=== PATIENT | female | born 1995 | race American Indian/Alaskan Native ===

== ENCOUNTER 2016-12-03 10:14 | Emergency (ER) | payer SELFPAY ==
[2016-12-03 10:44] VITALS: BP 126/82
== END 2016-12-03 13:10 | disposition left against medical advice (07) ==
LOC: ED 10:14
DX: O26.891 Other specified pregnancy related conditions, first trimester (principal); R10.30 Lower abdominal pain, unspecified; R11.0 Nausea; Z53.21 Procedure and treatment not carried out due to patient leaving prior to being seen by health care provider

== ENCOUNTER 2016-12-03 17:18 | Emergency (ER) | payer SELFPAY ==
[2016-12-03 17:48] LABS: Bacteria,Urine 1+ /HPF (Negative); Bilirubin,Urine NEG (Negative); Blood,Urine NEG (Negative); Ketones,Urine 20 mg/dL (Negative); Leukocyte Esterase,Urine LG (Negative); Mucus,Urine 1+ /HPF; Nitrite,Urine NEG (Negative); Protein,Urine <15 mg/dL mg/dL (Negative)
[2016-12-03 18:15] LABS: Basophils % (Auto) 0.9 % (0.0-1.8); Eosinophils % (Auto) 8.8 % (0.0-4.3); Hematocrit 41.8 % (30.3-42.9); Mean Corpuscular HGB Conc 33 % (30-34); Mean Corpuscular Hemoglobin 31 pg (28-32); Mean Corpuscular Volume 92 fl (79-97); Platelet Count 290 K/mm3 (140-440); Red Blood Count 4.54 M/mm3 (3.65-5.03); Red Cell Distribution Width 14.1 % (13.2-15.2)
[2016-12-03 18:28] LABS: Anion Gap 18 mmol/L; BUN/Creatinine Ratio 14.28; Blood Urea Nitrogen 10 mg/dL (7-17); Calcium 9.2 mg/dL (8.4-10.2); Carbon Dioxide 25 mmol/L (22-30); Chloride 100.5 mmol/L (98-107); Glucose 66 mg/dL (65-100); Potassium 4.1 mmol/L (3.6-5.0); Sodium 139 mmol/L (137-145)
--- NOTE | 2016-12-03 19:16 | Ultrasound Report ---
FINAL REPORT PROCEDURE: US TRANSVAGINAL TECHNIQUE: Real-time transvaginal sonography in multiple planes of the pelvis was performed with image documentation. This examination was performed without Doppler. Vascular abnormalities, including ovarian torsion, will not be detectable without Doppler evaluation. CPT 84800 HISTORY: l; eft adnexal pain COMPARISON: 09/28/2015 FINDINGS: UTERUS Size: 6.7 cm. Endometrial thickness: 7 mm. Orientation: anteverted. Cervix: Normal. Fibroids/masses: None. RIGHT Ovary: 3.2 x 2.7 cm. Appearance: Normal flow. Multiple small subcentimeter follicular cysts with a dominant in 7 millimeter cyst seen.. LEFT Ovary: 3.5 x 2.8 cm. Appearance: Normal flow. There is a dominant 1.7 centimeter cyst with minimal peripheral flow of indeterminate etiology. An early ectopic is not entirely excludable and followup is advised.. Pelvic fluid: None. Other: None. IMPRESSION: Dominant indeterminate cystic change left ovary Followup is advised
--- NOTE | 2016-12-03 19:19 | Ultrasound Report ---
FINAL REPORT PROCEDURE: US PELVIC COMPLETE TECHNIQUE: Real-time transabdominal sonography in multiple planes of pelvis was performed with image documentation. This examination was performed without Doppler. Vascular abnormalities, including ovarian torsion, will not be detectable without Doppler evaluation. CPT 63078 HISTORY: left adnexal pain COMPARISON: Transvaginal today and 09/28/2015 FINDINGS: UTERUS Size: 6.7 cm. Endometrial thickness: 7 mm. Orientation: Anteflexed. Cervix: Normal. Fibroids/masses: None. RIGHT Ovary: 3.2 x 2.7 cm. Appearance: Normal flow with small follicular cystic change. LEFT Ovary: 3.5 x 2.8 cm. Appearance: Normal flow with dominant left follicular cystic change 1.7 centimeters, indeterminate. Mild peripheral flow. Ectopic not excludable and followup is advised Pelvic fluid: None. Other: None. IMPRESSION: Dominant indeterminate cystic change left ovary Followup is advised
--- NOTE | 2016-12-03 20:02 | Emergency Department Report ---
ED Female HPI - General Chief complaint: Urogenital-Female Stated complaint: DISCHARGE/LOWER ABD PAIN Time Seen by Provider: 12/03/16 17:22 Source: patient Mode of arrival: Ambulatory Limitations: No Limitations - History of Present Illness Initial comments: 21-year-old female presents with complaint of greenish vaginal discharge 2 weeks. Patient also states that about 2 weeks ago she may have had positive test at home. Patient also complaining of intermittent vaginal bleeding, spotting. Patient states she is on Depo-Provera shots. Denies any significant abdominal pain no nausea no vomiting no fever no chills. States that her primary complaint is of greenish vaginal discharge and mild dysuria. MD Complaint: vaginal discharge, dysuria Onset/Timin -: week(s) Severity: mild Consistency: intermittent Improves with: none Worsens with: urination Last Menstrual Period: 11/15/16 EDC: 08/22/17 Associated Symptoms: vaginal discharge - Related Data Sexually active: Yes Previous Rx's Medication Instructions Recorded Last Taken Type HYDROcodone/APAP 5-325 [[place] 1 each PO Q6HR PRN #20 tablet 05/09/16 Unknown Rx 5/325] Ibuprofen [Motrin] 800 mg PO Q8HR PRN #60 tablet 05/09/16 Unknown Rx Nitrofurantoin [place]/M-Cryst 100 mg PO Q12HR #14 capsule 12/03/16 Unknown Rx [Macrobid CAP] metroNIDAZOLE 0.75% [Metrogel 1 applicatio TP BID #1 tube 12/03/16 Unknown Rx 0.75% TOPICAL] metroNIDAZOLE [Flagyl TAB] 500 mg PO Q12HR #14 tab 12/03/16 Unknown Rx Allergies Allergy/AdvReac Type Severity Reaction Status Date / Time No Known Allergies Allergy Verified 05/07/16 23:14 ED Review of Systems ROS: Stated complaint: DISCHARGE/LOWER ABD PAIN Other details as noted in HPI Constitutional: denies: chills, fever Eyes: denies: eye pain, eye discharge, vision change ENT: denies: ear pain, throat pain Respiratory: denies: cough, shortness of breath, wheezing Cardiovascular: denies: chest pain, palpitations Endocrine: no symptoms reported Gastrointestinal: denies: abdominal pain, nausea, diarrhea Genitourinary: dysuria, discharge. denies: urgency Musculoskeletal: denies: back pain, joint swelling, arthralgia Skin: denies: rash, lesions Neurological: denies: headache, weakness, paresthesias Psychiatric: denies: anxiety, depression Hematological/Lymphatic: denies: easy bleeding, easy bruising ED Past Medical Hx - Past Medical History Previous Medical History?: Yes Hx Hypertension: No Hx Heart Attack/AMI: No Hx Congestive Heart Failure: No Hx Diabetes: No Hx Deep Vein Thrombosis: No Hx Renal Disease: No Hx Sickle Cell Disease: No Hx Seizures: No Hx Asthma: No Hx COPD: No Hx HIV: No - Surgical History Past Surgical History?: No - Social History Smoking Status: Current Every Day Smoker Substance Use Type: Alcohol - Medications Home Medications: Home Medications Medication Instructions Recorded Confirmed Last Taken Type HYDROcodone/APAP 5-325 [[place] 1 each PO Q6HR PRN #20 tablet 05/09/16 Unknown Rx 5/325] Ibuprofen [Motrin] 800 mg PO Q8HR PRN #60 tablet 05/09/16 Unknown Rx Nitrofurantoin [place]/M-Cryst 100 mg PO Q12HR #14 capsule 12/03/16 Unknown Rx [Macrobid CAP] metroNIDAZOLE 0.75% [Metrogel 1 applicatio TP BID #1 tube 12/03/16 Unknown Rx 0.75% TOPICAL] metroNIDAZOLE [Flagyl TAB] 500 mg PO Q12HR #14 tab 12/03/16 Unknown Rx ED Physical Exam - General Limitations: No Limitations General appearance: alert, in no apparent distress - Head Head exam: Present: atraumatic, normocephalic - Eye Eye exam: Present: normal appearance - ENT ENT exam: Present: mucous membranes moist - Neck Neck exam: Present: normal inspection - Respiratory Respiratory exam: Present: normal lung sounds bilaterally. Absent: respiratory distress - Cardiovascular Cardiovascular Exam: Present: regular rate, normal rhythm. Absent: systolic murmur, diastolic murmur, rubs, gallop - GI/Abdominal GI/Abdominal exam: Present: soft, normal bowel sounds - Speculum exam: Present: vaginal discharge (mild whitish discharge him and no bleeding) Bi-manual exam: Present: adnexal tenderness (I'll do left-sided adnexal tenderness) - Extremities Exam Extremities exam: Present: normal inspection - Back Exam Back exam: Present: normal inspection - Neurological Exam Neurological exam: Present: alert, oriented X3, CN II-XII intact, normal gait - Psychiatric Psychiatric exam: Present: normal affect, normal mood - Skin Skin exam: Present: warm, dry, intact, normal color. Absent: rash ED Course Vital Signs 12/03/16 17:21 Temperature 98 F Pulse Rate 89 Respiratory 16 Rate Blood Pressure 116/76 O2 Sat by Pulse 99 Oximetry ED Medical Decision Making - Lab Data Result diagrams: 12/03/16 17:55 12/03/16 17:55 - Medical Decision Making A/P: Vaginal bleeding/spotting, vaginal discharge 1-patient is not negative urine and negative blood tests, ultrasound only shows small cystic structure to her left ovary, Doppler blood flow normal 2-clue cells positive and wet prep will treat empirically with metronidazole 3-urine shows greater than 50 wbc's will treat empirically with Macrobid 4-will give patient follow up with [facility]. I advised her to return to the ED for any fever or chills, severe abdominal pain, significant discharge or any significant vaginal bleeding Critical care attestation.: If time is entered above; I have spent that time in minutes in the direct care of this critically ill patient, excluding procedure time. ED Disposition Clinical Impression: Vaginal discharge Disposition: DISCHARGED TO HOME OR SELFCARE Is pt being admited?: No Does the pt Need Aspirin: No Condition: Stable Instructions: Bacterial Vaginosis (ED), Urinary Tract Infection in Women (ED), Dysuria (ED) Prescriptions: metroNIDAZOLE [Flagyl TAB] 500 mg PO Q12HR #14 tab Nitrofurantoin [place]/M-Cryst [Macrobid CAP] 100 mg PO Q12HR #14 capsule metroNIDAZOLE 0.75% [Metrogel 0.75% TOPICAL] 1 applicatio TP BID #1 tube Referrals: PRIMARY CARE [Primary Care Provider] - 3-5 Days [facility] [Provider Group] - 3-5 Days Forms: Work/School Release Form(ED) Time of Disposition: 20:03
[2016-12-03 20:25] VITALS: BP 120/70
== END 2016-12-03 20:38 | disposition home or self-care (01) ==
LOC: ED 17:18
DX: N89.8 Other specified noninflammatory disorders of vagina (principal); N93.9 Abnormal uterine and vaginal bleeding, unspecified; F17.200 Nicotine dependence, unspecified, uncomplicated
CPT/HCPCS: 36415; 76830; 76856; 80048; 81001; 81025; 84702; 85025; 86850; 86900; 86901; 87086; 87210; 87591

== ENCOUNTER 2017-04-02 16:15 | Emergency (ER) | payer SELFPAY ==
--- NOTE | 2017-04-02 17:37 | Emergency Department Report ---
Entered by ANNIE CASTANEDA, acting as scribe for EULOGIO FAROOQ NP. Chief Complaint: Abdominal Pain Stated Complaint: ABD PAIN/ANXIETY - HPI History of Present Illness: 21 y/o female, nontoxic, well developed, NAD, c/o diffuse abdominal pain beginning 2 weeks ago. Associated dizziness and SOB but denies fever, chills, vaginal bleeding, N/V/D, back pain, chest pain, MARION. Patient reports being sexually active but does not use protection - Exam Vital Signs: Vital Signs 04/02/17 17:15 Temperature 98.2 F Pulse Rate 59 L Respiratory 18 Rate Blood Pressure 105/63 O2 Sat by Pulse 100 Oximetry Physical Exam: GENERAL: The patient is a well-developed, well-nourished male in no apparent distress. Patient is alert and oriented x3. ABDOMEN: Soft, nontender, and nondistended. Positive bowel sounds. No epigastric pain. Positive diffuse tenderness. No hepatosplenomegaly was noted. No guarding or rebound tenderness, negative epigastric bruit. Negative psoas sign, negative hussein sign, negative McBurneys sign MSE screening note: Focused history and physical exam performed. Due to findings the following was ordered: Amylase, lipase, serum HCG, CMP, CBC, UA ED Disposition for MSE Condition: Stable Instructions: Abdominal Pain (ED) This documentation as recorded by the scribe,ANNIE CASTANEDA,accurately reflects the service I personally performed and the decisions made by ,EULOGIO FAROOQ, PEDRO.
[2017-04-02 17:56] LABS: Basophils % (Auto) 0.6 % (0.0-1.8); Eosinophils % (Auto) 2.4 % (0.0-4.3); Hematocrit 39.8 % (30.3-42.9); Hemoglobin 13.1 gm/dl (10.1-14.3); Mean Corpuscular HGB Conc 33 % (30-34); Mean Corpuscular Hemoglobin 30 pg (28-32); Mean Corpuscular Volume 92 fl (79-97); Platelet Count 276 K/mm3 (140-440); Red Blood Count 4.34 M/mm3 (3.65-5.03); Red Cell Distribution Width 14.6 % (13.2-15.2); White Blood Count 4.9 K/mm3 (4.5-11.0)
[2017-04-02 18:09] LABS: Alanine Aminotransferase 7 units/L (7-56); Albumin 4.3 g/dL (3.9-5); Albumin/Globulin Ratio 1.5 %; Alkaline Phosphatase 51 units/L (35-129); Amylase 83 units/L (27-131); Anion Gap 18 mmol/L; Blood Urea Nitrogen 6 mg/dL (7-17); Calcium 9.2 mg/dL (8.4-10.2); Carbon Dioxide 23 mmol/L (22-30); Chloride 98.1 mmol/L (98-107); Glucose 84 mg/dL (65-100); Lipase 28 units/L (13-60); Potassium 3.9 mmol/L (3.6-5.0); Sodium 135 mmol/L (137-145); Total Protein 7.1 g/dL (6.3-8.2)
--- NOTE | 2017-04-02 20:08 | Ultrasound Report ---
FINAL REPORT EXAM: US OB \T\lt; = 14 WEEKS FETUS HISTORY: abd pain, . Nausea, vomiting, and cramping. No history of bleeding. . LMP 02/05/2017 with estimated age 8 weeks 0 days and EDC 11/12/2017 TECHNIQUE: Ultrasound of the pelvis using transabdominal and transvaginal imaging PRIORS: Ultrasound pelvis 12/03/2016 FINDINGS: Uterus: Uterus is enlarged in size and normal and homogeneous in echogenicity without focal fibroid formation. The uterus measures 9.0 x 5.1 x 6.1 cm in size. There is a single early viable intrauterine gestation noted. There is a small hypoechoic subchorionic hemorrhage noted cranial to the gestational sac. This measures 5.1 x 2.9 x 8.5 mm. Intrauterine gestation: There is a single intrauterine gestation identified with both a pole and yolk sac. heart rate is monitored at 128 BPM using M-mode doppler. [place]-rump length measurement of 0.79 cm corresponds to estimated age 6 weeks 5 days with EDC 11/21/2017. Ovaries: Both ovaries appear normal in size and echogenicity with normal blood flow bilaterally. The right ovary measures 3.2 x 1.8 x 2.7 cm on the left ovary measures 2.3 x 1.1 x 1.0 cm in size. There is a complex hypoechoic rounded avascular focus in the right ovary measuring 1.6 cm. Other: There is no evidence for solid adnexal mass is seen. There is trace free fluid in the cul-de-sac. IMPRESSION: 1. single intrauterine viable with an approximate age of 6 weeks 5 days. 2. Small subchorionic hemorrhage cranial to the gestational sac 3. Hypoechoic avascular focus in the right ovary, likely a complex hemorrhagic cyst. This can be followed with ultrasound in 1 week.
[2017-04-03 05:41] VITALS: BP 108/66
--- NOTE | 2017-04-08 20:58 | ED Elopement Review ---
ED Pt Elopement review - Results review Lab results: Laboratory Tests 04/02/17 04/02/17 04/02/17 17:34 17:34 17:34 WBC 4.9 RBC 4.34 Hgb 13.1 Hct 39.8 MCV 92 MCH 30 MCHC 33 RDW 14.6 Plt Count 276 Lymph % (Auto) 39.8 H [place] % (Auto) 7.4 H Eos % (Auto) 2.4 Baso % (Auto) 0.6 Lymph # 2.0 [place] # 0.4 Eos # 0.1 Baso # 0.0 Seg Neutrophils % 49.8 Seg Neutrophils # 2.5 Sodium 135 L Potassium 3.9 Chloride 98.1 Carbon Dioxide 23 Anion Gap 18 BUN 6 L Creatinine 0.5 L Estimated GFR > 60 BUN/Creatinine Ratio 12.00 Glucose 84 Calcium 9.2 Total Bilirubin 1.20 AST 11 ALT 7 Alkaline Phosphatase 51 Total Protein 7.1 Albumin 4.3 Albumin/Globulin Ratio 1.5 Amylase 83 Lipase 28 HCG, Qual Positive HCG, Quant Blood Type 04/02/17 04/02/17 19:04 19:04 WBC RBC Hgb Hct MCV MCH MCHC RDW Plt Count Lymph % (Auto) [place] % (Auto) Eos % (Auto) Baso % (Auto) Lymph # [place] # Eos # Baso # Seg Neutrophils % Seg Neutrophils # Sodium Potassium Chloride Carbon Dioxide Anion Gap BUN Creatinine Estimated GFR BUN/Creatinine Ratio Glucose Calcium Total Bilirubin AST ALT Alkaline Phosphatase Total Protein Albumin Albumin/Globulin Ratio Amylase Lipase HCG, Qual HCG, Quant 58525 H Blood Type O POSITIVE - Call Back decision Pt Call Back Decision: Pt to F/U with PMD (abdominal pain in . U/S shows viable IUP at 6 weeks.)
== END 2017-04-02 18:56 | disposition left against medical advice (07) ==
LOC: ED 16:15
DX: R10.9 Unspecified abdominal pain (principal); Z53.21 Procedure and treatment not carried out due to patient leaving prior to being seen by health care provider
CPT/HCPCS: 36415; 76801; 76817; 80053; 82150; 83690; 84702; 84703; 85025; 86900; 86901; 99283

== ENCOUNTER 2018-05-07 14:16 | Emergency (ER) | payer MEDICAID ==
[2018-05-07 15:01] VITALS: BP 104/61
--- NOTE | 2018-05-07 17:36 | Emergency Department Report ---
ED Abdominal Pain HPI - General Chief Complaint: Abdominal Pain Stated Complaint: ABD PAIN, DISCHARGE,BLEEDING Time Seen by Provider: 05/07/18 17:26 Source: patient Mode of arrival: Ambulatory Limitations: No Limitations - History of Present Illness MD Complaint: abdominal pain -: Gradual, days(s) (several days), unknown Location: suprapubic (several days) Radiation: none Severity: mild Quality: cramping Associated Symptoms: other (brownish green vaginal discharge, eczematous rash upper back) - Related Data Previous Rx's Medication Instructions Recorded Last Taken Type HYDROcodone/APAP 5-325 [[place] 1 each PO Q6HR PRN #20 tablet 05/09/16 Unknown Rx 5/325] Ibuprofen [Motrin] 800 mg PO Q8HR PRN #60 tablet 05/09/16 Unknown Rx Nitrofurantoin [place]/M-Cryst 100 mg PO Q12HR #14 capsule 12/03/16 Unknown Rx [Macrobid CAP] metroNIDAZOLE 0.75%(NF) [Metrogel 1 applicatio TP BID #1 tube 12/03/16 Unknown Rx 0.75% TOPICAL] metroNIDAZOLE [Flagyl TAB] 500 mg PO Q12HR #14 tab 12/03/16 Unknown Rx Fluconazole [Diflucan] 150 mg PO ONCE #1 tablet 05/07/18 Unknown Rx Hydrocortisone 1% [Hydrocortisone 1 applicatio TP TID #1 tube 05/07/18 Unknown Rx 1% CREAM] metroNIDAZOLE [Metronidazole] 500 mg PO BID 7 Days #14 tablet 05/07/18 Unknown Rx Allergies Allergy/AdvReac Type Severity Reaction Status Date / Time No Known Allergies Allergy Verified 05/07/16 23:14 ED Review of Systems ROS: Stated complaint: ABD PAIN, DISCHARGE,BLEEDING Other details as noted in HPI Comment: All other systems reviewed and negative Constitutional: denies: fever, malaise Respiratory: denies: cough Cardiovascular: denies: chest pain Gastrointestinal: abdominal pain, nausea, vomiting Genitourinary: discharge. denies: urgency, dysuria ED Past Medical Hx - Past Medical History Hx Hypertension: No Hx Heart Attack/AMI: No Hx Congestive Heart Failure: No Hx Diabetes: No Hx Deep Vein Thrombosis: No Hx Renal Disease: No Hx Sickle Cell Disease: No Hx Seizures: No Hx Asthma: Yes Hx COPD: No Hx HIV: No - Surgical History Past Surgical History?: No - Social History Smoking Status: Never Smoker Substance Use Type: None - Medications Home Medications: Home Medications Medication Instructions Recorded Confirmed Last Taken Type HYDROcodone/APAP 5-325 [[place] 1 each PO Q6HR PRN #20 tablet 05/09/16 Unknown Rx 5/325] Ibuprofen [Motrin] 800 mg PO Q8HR PRN #60 tablet 05/09/16 Unknown Rx Nitrofurantoin [place]/M-Cryst 100 mg PO Q12HR #14 capsule 12/03/16 Unknown Rx [Macrobid CAP] metroNIDAZOLE 0.75%(NF) [Metrogel 1 applicatio TP BID #1 tube 12/03/16 Unknown Rx 0.75% TOPICAL] metroNIDAZOLE [Flagyl TAB] 500 mg PO Q12HR #14 tab 12/03/16 Unknown Rx Fluconazole [Diflucan] 150 mg PO ONCE #1 tablet 05/07/18 Unknown Rx Hydrocortisone 1% [Hydrocortisone 1 applicatio TP TID #1 tube 05/07/18 Unknown Rx 1% CREAM] metroNIDAZOLE [Metronidazole] 500 mg PO BID 7 Days #14 tablet 05/07/18 Unknown Rx ED Physical Exam - General Limitations: No Limitations General appearance: alert, in no apparent distress - Head Head exam: Present: atraumatic, normocephalic - Eye Eye exam: Present: normal appearance - ENT ENT exam: Present: mucous membranes moist - Neck Neck exam: Present: normal inspection - Respiratory Respiratory exam: Present: normal lung sounds bilaterally. Absent: respiratory distress, wheezes, rales, rhonchi - Cardiovascular Cardiovascular Exam: Present: regular rate, normal rhythm. Absent: systolic murmur, diastolic murmur, rubs, gallop - GI/Abdominal GI/Abdominal exam: Present: soft, normal bowel sounds. Absent: distended, tenderness, guarding, rebound - Extremities Exam Extremities exam: Present: normal inspection - Back Exam Back exam: Present: normal inspection - Neurological Exam Neurological exam: Present: alert, oriented X3 - Psychiatric Psychiatric exam: Present: normal affect, normal mood - Skin Skin exam: Present: warm, dry, intact, normal color, other (dry scaly rash 10 cm x 10 cm right upper back). Absent: rash ED Course Vital Signs 05/07/18 05/07/18 14:58 16:32 Temperature 98.1 F Pulse Rate 62 Respiratory 16 12 Rate Blood Pressure 104/61 O2 Sat by Pulse 98 Oximetry ED Medical Decision Making - Medical Decision Making Vaginitis versus cervicitis, will prescribe metronidazole and fluconazole. Referred to [facility] for STI checks. Also referred to [facility]. Eczematous rash, prescribed hydrocortisone ointment Critical care attestation.: If time is entered above; I have spent that time in minutes in the direct care of this critically ill patient, excluding procedure time. ED Disposition Clinical Impression: Vaginitis, Eczema Disposition: TO HOME OR SELFCARE Is pt being admited?: No Does the pt Need Aspirin: No Condition: Stable Instructions: Vaginitis (ED), Eczema (ED) Prescriptions: Fluconazole [Diflucan] 150 mg PO ONCE #1 tablet Hydrocortisone 1% [Hydrocortisone 1% CREAM] 1 applicatio TP TID #1 tube metroNIDAZOLE [Metronidazole] 500 mg PO BID 7 Days #14 tablet Referrals: [facility] [Outside] - 3-5 Days [facility] [Outside] - 3-5 Days Time of Disposition: 17:37
== END 2018-05-07 17:43 | disposition home or self-care (01) ==
LOC: ED 14:16
DX: N76.0 Acute vaginitis (principal); J45.909 Unspecified asthma, uncomplicated
CPT/HCPCS: 99282

== ENCOUNTER 2019-04-14 12:48 | Emergency (ER) | payer MEDICAID, OTHER ==
--- NOTE | 2019-04-14 12:58 | Emergency Department Report ---
Chief Complaint: Urogenital-Female Stated Complaint: ABD PAIN/DISCHARGE Time Seen by Provider: 04/14/19 12:53 - HPI History of Present Illness: This is a 23 y.o. F. that presents to the ER with abdominal pain, vaginal discharge, and sore throat x 2 weeks. LMP 02/28/2019, A0 Current smoker and occasional drinker. Patient took a home test 2 days ago and positive. Denies vaginal bleeding - Exam Vital Signs: Vital Signs 04/14/19 12:53 Temperature 98.0 F Pulse Rate 78 Respiratory 16 Rate Blood Pressure 98/35 O2 Sat by Pulse 100 Oximetry MSE screening note: Focused history and physical exam performed. Due to findings the following was ordered: This initial assessment/diagnostic orders/clinical plan/treatment(s) is/are subject to change based on patient's health status, clinical progression and re- assessment by fellow clinical providers in the ED. Further treatment and workup at subsequent clinical providers discretion. Patient/guardians urged not to elope from the ED as their condition may be serious if not clinically assessed and managed. Initial orders include: Labs ACC for further evaluation. ED Disposition for MSE Condition: Stable
[2019-04-14 13:22] LABS: Bacteria,Urine 1+ /HPF (Negative); Bilirubin,Urine NEG (Negative); Blood,Urine NEG (Negative); Color,Urine Yellow (Yellow); Mucus,Urine FEW /HPF; Protein,Urine <15 mg/dL mg/dL (Negative)
[2019-04-14 13:32] LABS: Hematocrit 36.8 % (30.3-42.9); Hemoglobin 12.2 gm/dl (10.1-14.3); Mean Corpuscular HGB Conc 33 % (30-34); Mean Corpuscular Volume 94 fl (79-97); Platelet Count 262 K/mm3 (140-440); Red Blood Count 3.92 M/mm3 (3.65-5.03)
[2019-04-14 14:01] LABS: Alanine Aminotransferase 7 units/L (7-56); BUN/Creatinine Ratio 17; Blood Urea Nitrogen 10 mg/dL (7-17); Calcium 9.4 mg/dL (8.4-10.2); Hemolysis Index 8
[2019-04-14 14:10] LABS: Basophils % (Manual) 0 % (0.0-1.8); Platelet Estimate Consistent w Auto; RBC Morphology Normal; Total Cells Counted 100
[2019-04-14] MEDS ORDERED: ROCEPHIN IM ONE (16:25)
[2019-04-14] MEDS ORDERED: XYLOCAINE 1% MPF 5 mL INFILTRATI ONE (16:25)
[2019-04-14] MEDS ORDERED: ZITHROMAX PO ONE (16:26)
--- NOTE | 2019-04-14 16:29 | Emergency Department Report ---
ED Female HPI - General Chief complaint: Urogenital-Female Stated complaint: ABD PAIN/DISCHARGE Time Seen by Provider: 04/14/19 12:53 Source: patient Mode of arrival: Ambulatory Limitations: No Limitations - History of Present Illness Initial comments: 23-year-old female with lower abdominal pain, vaginal discharge times one month. Patient reports she had a positive home test. Patient denies dysuria, urinary frequency. MD Complaint: vaginal discharge -: month(s) (1) Location: suprapubic Severity: mild Quality: cramping Consistency: intermittent Improves with: none Worsens with: none Are you Now?: Yes Associated Symptoms: vaginal discharge, abdominal pain. denies: vaginal bleeding, dysuria - Related Data Previous Rx's Medication Instructions Recorded Last Taken Type HYDROcodone/APAP 5-325 [[place] 1 each PO Q6HR PRN #20 tablet 05/09/16 Unknown Rx 5/325] Ibuprofen [Motrin] 800 mg PO Q8HR PRN #60 tablet 05/09/16 Unknown Rx Nitrofurantoin [place]/M-Cryst 100 mg PO Q12HR #14 capsule 12/03/16 Unknown Rx [Macrobid CAP] metroNIDAZOLE 0.75%(NF) [Metrogel 1 applicatio TP BID #1 tube 12/03/16 Unknown Rx 0.75% TOPICAL] Fluconazole [Diflucan] 150 mg PO ONCE #1 tablet 05/07/18 Unknown Rx Hydrocortisone 1% [Hydrocortisone 1 applicatio TP TID #1 tube 05/07/18 Unknown Rx 1% CREAM] metroNIDAZOLE [Metronidazole] 500 mg PO BID 7 Days #14 tablet 05/07/18 Unknown Rx ALBUTEROL Inhaler(NF) [VENTOLIN 2 puff IH Q4HRT #1 inha 03/17/19 Unknown Rx Inhaler(NF)] Amoxicillin/Potassium Clav 1 each PO BID #14 tablet 03/17/19 Unknown Rx [Augmentin 875-125 Tablet] Fluticasone [Flonase] 1 spray NS QDAY #1 bottle 03/17/19 Unknown Rx predniSONE [Deltasone] 20 mg PO QDAY #5 tab 03/17/19 Unknown Rx traMADol [Ultram] 50 mg PO Q6HR PRN #12 tablet 03/17/19 Unknown Rx metroNIDAZOLE [Flagyl TAB] 500 mg PO Q12HR #14 tab 04/14/19 Unknown Rx Allergies Allergy/AdvReac Type Severity Reaction Status Date / Time No Known Allergies Allergy Verified 04/14/19 12:49 ED Review of Systems ROS: Stated complaint: ABD PAIN/DISCHARGE Other details as noted in HPI Comment: All other systems reviewed and negative Constitutional: denies: chills, fever Gastrointestinal: abdominal pain Genitourinary: discharge. denies: dysuria, frequency ED Past Medical Hx - Past Medical History Hx Hypertension: No Hx Heart Attack/AMI: No Hx Congestive Heart Failure: No Hx Diabetes: No Hx Deep Vein Thrombosis: No Hx Renal Disease: No Hx Sickle Cell Disease: No Hx Seizures: No Hx Asthma: Yes Hx COPD: No Hx HIV: No - Social History Smoking Status: Current Every Day Smoker Substance Use Type: Alcohol - Medications Home Medications: Home Medications Medication Instructions Recorded Confirmed Last Taken Type HYDROcodone/APAP 5-325 [[place] 1 each PO Q6HR PRN #20 tablet 05/09/16 Unknown Rx 5/325] Ibuprofen [Motrin] 800 mg PO Q8HR PRN #60 tablet 05/09/16 Unknown Rx Nitrofurantoin [place]/M-Cryst 100 mg PO Q12HR #14 capsule 12/03/16 Unknown Rx [Macrobid CAP] metroNIDAZOLE 0.75%(NF) [Metrogel 1 applicatio TP BID #1 tube 12/03/16 Unknown Rx 0.75% TOPICAL] Fluconazole [Diflucan] 150 mg PO ONCE #1 tablet 05/07/18 Unknown Rx Hydrocortisone 1% [Hydrocortisone 1 applicatio TP TID #1 tube 05/07/18 Unknown Rx 1% CREAM] metroNIDAZOLE [Metronidazole] 500 mg PO BID 7 Days #14 tablet 05/07/18 Unknown Rx ALBUTEROL Inhaler(NF) [VENTOLIN 2 puff IH Q4HRT #1 inha 03/17/19 Unknown Rx Inhaler(NF)] Amoxicillin/Potassium Clav 1 each PO BID #14 tablet 03/17/19 Unknown Rx [Augmentin 875-125 Tablet] Fluticasone [Flonase] 1 spray NS QDAY #1 bottle 03/17/19 Unknown Rx predniSONE [Deltasone] 20 mg PO QDAY #5 tab 03/17/19 Unknown Rx traMADol [Ultram] 50 mg PO Q6HR PRN #12 tablet 03/17/19 Unknown Rx metroNIDAZOLE [Flagyl TAB] 500 mg PO Q12HR #14 tab 04/14/19 Unknown Rx ED Physical Exam - General Limitations: No Limitations General appearance: alert, in no apparent distress - Head Head exam: Present: atraumatic, normocephalic - Eye Eye exam: Present: normal appearance - ENT ENT exam: Present: mucous membranes moist - Neck Neck exam: Present: normal inspection - Respiratory Respiratory exam: Present: normal lung sounds bilaterally. Absent: respiratory distress - Cardiovascular Cardiovascular Exam: Present: regular rate, normal rhythm - GI/Abdominal GI/Abdominal exam: Present: soft, tenderness (very mild suprapubic tenderness). Absent: distended - External exam: Present: normal external exam Speculum exam: Present: vaginal discharge, cervical discharge Bi-manual exam: Absent: cervical motion tendernes - Extremities Exam Extremities exam: Present: normal inspection - Neurological Exam Neurological exam: Present: alert, oriented X3 - Psychiatric Psychiatric exam: Present: normal affect, normal mood - Skin Skin exam: Present: warm, dry, intact, normal color ED Course Vital Signs 04/14/19 12:53 Temperature 98.0 F Pulse Rate 78 Respiratory 16 Rate Blood Pressure 98/35 O2 Sat by Pulse 100 Oximetry ED Medical Decision Making - Lab Data Result diagrams: 04/14/19 13:18 04/14/19 13:18 - Medical Decision Making - preg test negative - empirically treated for GC and Chlam w/ rocephin and azithro - wet prep shows BV - rx given for flagyl - 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 ED Disposition Clinical Impression: Cervicitis, Bacterial vaginosis Disposition: DC-01 TO HOME OR SELFCARE Is pt being admited?: No Condition: Stable Instructions: Bacterial Vaginosis (ED), Cervicitis (ED) Prescriptions: metroNIDAZOLE [Flagyl TAB] 500 mg PO Q12HR #14 tab Referrals: FATEMEH SNEED MD [Primary Care Provider] - 3-5 Days SCAR HARRINGTON MD [Staff Physician] - 3-5 Days Forms: STI Treatment and Prevention Time of Disposition: 16:37
[2019-04-14 17:14] VITALS: BP 99/64
== END 2019-04-14 17:16 | disposition home or self-care (01) ==
LOC: ED 12:48
DX: N76.0 Acute vaginitis (principal); N72 Inflammatory disease of cervix uteri; J45.909 Unspecified asthma, uncomplicated; F17.200 Nicotine dependence, unspecified, uncomplicated
CPT/HCPCS: 36415; 80053; 81001; 84703; 85007; 85025; 87210; 87591; 96372; 99284; J0696

== ENCOUNTER 2019-04-15 16:20 | Emergency (ER) | payer SELFPAY ==
[2019-04-15 16:27] VITALS: BP 107/62
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
[2019-04-15 19:11] LABS: Basophils % (Auto) 0.9 % (0.0-1.8); Eosinophils # (Auto) 0.1 K/mm3 (0.0-0.4); Eosinophils % (Auto) 3.5 % (0.0-4.3); Hemoglobin 13.3 gm/dl (10.1-14.3); Lymphocytes # (Auto) 1.7 K/mm3 (1.2-5.4); Lymphocytes % (Auto) 45.8 % (13.4-35.0); Mean Corpuscular HGB Conc 33 % (30-34); Mean Corpuscular Volume 93 fl (79-97); Monocytes # (Auto) 0.4 K/mm3 (0.0-0.8); Monocytes % (Auto) 10.6 % (0.0-7.3); Platelet Count 260 K/mm3 (140-440); Red Cell Distribution Width 14.2 % (13.2-15.2)
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
[2019-04-15 19:28] LABS: Alanine Aminotransferase 8 units/L (7-56); Albumin 4.1 g/dL (3.9-5); BUN/Creatinine Ratio 14; Bilirubin,Direct 0.2 mg/dL (0-0.2); Blood Urea Nitrogen 10 mg/dL (7-17); Calcium 9.4 mg/dL (8.4-10.2); Hemolysis Index 11
== END 2019-04-15 19:49 ==
LOC: EEVIPCON 16:20 → ED 16:20
DX: T76.21XA Adult sexual abuse, suspected, initial encounter (principal); J45.909 Unspecified asthma, uncomplicated; F17.200 Nicotine dependence, unspecified, uncomplicated; Z79.899 Other long term (current) drug therapy; X58.XXXA Exposure to other specified factors, initial encounter
CPT/HCPCS: 36415; 80048; 80076; 84703; 85025; 99283; G0480; 80320

== ENCOUNTER 2019-09-25 08:44 | Emergency (ER) | payer SELFPAY ==
[2019-09-25 08:58] VITALS: BP 105/44
--- NOTE | 2019-09-25 09:35 | Emergency Department Report ---
ED General Adult HPI - General Chief complaint: Upper Respiratory Infection Stated complaint: RUNNY NOSE/ VAG DISCHARGE YELLOW Time Seen by Provider: 09/25/19 09:13 Source: patient Mode of arrival: Ambulatory Limitations: No Limitations - History of Present Illness Initial comments: This is a 24-year-old -[place] female who presents to the emergency room with rhinorrhea and vaginal discharge for several days. Patient reports she is 25 weeks . Her [facility]TER is a [employer] [facility]. Patient states her kids are sick she thinks she caught something from them. She reports discharge is yellowish green and constant causing her to wear a panty liner. She denies abdominal pain, back pain, urinary frequency, urgency, dysuria, fever, cough, chills, or weakness. Onset/Timin -: days(s) Severity scale (0 -10): 0 Consistency: constant Improves with: none Worsens with: none Associated Symptoms: denies: confusion, chest pain, cough, diaphoresis, fever/chills, headaches, loss of appetite, malaise, nausea/vomiting, rash, seizure, shortness of breath, syncope, weakness Treatments Prior to Arrival: none - Related Data Previous Rx's Medication Instructions Recorded Last Taken Type HYDROcodone/APAP 5-325 [[place] 1 each PO Q6HR PRN #20 tablet 05/09/16 Unknown Rx 5/325] Ibuprofen [Motrin] 800 mg PO Q8HR PRN #60 tablet 05/09/16 Unknown Rx Nitrofurantoin [place]/M-Cryst 100 mg PO Q12HR #14 capsule 12/03/16 Unknown Rx [Macrobid CAP] metroNIDAZOLE 0.75%(NF) [Metrogel 1 applicatio TP BID #1 tube 12/03/16 Unknown Rx 0.75% TOPICAL] Fluconazole [Diflucan] 150 mg PO ONCE #1 tablet 05/07/18 Unknown Rx Hydrocortisone 1% [Hydrocortisone 1 applicatio TP TID #1 tube 05/07/18 Unknown Rx 1% CREAM] metroNIDAZOLE [Metronidazole] 500 mg PO BID 7 Days #14 tablet 05/07/18 Unknown Rx ALBUTEROL Inhaler(NF) [VENTOLIN 2 puff IH Q4HRT #1 inha 03/17/19 Unknown Rx Inhaler(NF)] Amoxicillin/Potassium Clav 1 each PO BID #14 tablet 03/17/19 Unknown Rx [Augmentin 235125 Tablet] Fluticasone [Flonase] 1 spray NS QDAY #1 bottle 03/17/19 Unknown Rx predniSONE [Deltasone] 20 mg PO QDAY #5 tab 03/17/19 Unknown Rx traMADoL [Ultram] 50 mg PO Q6HR PRN #12 tablet 03/17/19 Unknown Rx metroNIDAZOLE [Flagyl TAB] 500 mg PO Q12HR #14 tab 04/14/19 Unknown Rx Miconazole Nitrate [Miconazole 7] 100 mg VG QHS #7 supp.vag 09/25/19 Unknown Rx metroNIDAZOLE [Flagyl TAB] 500 mg PO Q12HR 7 Days #14 tab 09/25/19 Unknown Rx Allergies Allergy/AdvReac Type Severity Reaction Status Date / Time No Known Allergies Allergy Verified 04/14/19 12:49 ED Review of Systems ROS: Stated complaint: RUNNY NOSE/ VAG DISCHARGE YELLOW Other details as noted in HPI Constitutional: denies: chills, fever ENT: congestion. denies: ear pain, throat pain, dental pain, hearing loss, epistaxis Respiratory: denies: cough, shortness of breath, wheezing Cardiovascular: denies: chest pain, palpitations Gastrointestinal: denies: abdominal pain, nausea, diarrhea Genitourinary: discharge. denies: urgency, dysuria, frequency, abnormal menses, dyspareunia Musculoskeletal: denies: back pain, joint swelling, arthralgia Skin: denies: rash, lesions Neurological: denies: headache, weakness, paresthesias Psychiatric: denies: anxiety, depression ED Past Medical Hx - Past Medical History Previous Medical History?: Yes Hx Hypertension: No Hx Heart Attack/AMI: No Hx Congestive Heart Failure: No Hx Diabetes: No Hx Deep Vein Thrombosis: No Hx Renal Disease: No Hx Sickle Cell Disease: No Hx Seizures: No Hx Asthma: Yes Hx COPD: No Hx HIV: No Additional medical history: Eczema - Surgical History Past Surgical History?: No - Social History Smoking Status: Never Smoker - Medications Home Medications: Home Medications Medication Instructions Recorded Confirmed Last Taken Type HYDROcodone/APAP 5-325 [[place] 1 each PO Q6HR PRN #20 tablet 05/09/16 Unknown Rx 5/325] Ibuprofen [Motrin] 800 mg PO Q8HR PRN #60 tablet 05/09/16 Unknown Rx Nitrofurantoin [place]/M-Cryst 100 mg PO Q12HR #14 capsule 12/03/16 Unknown Rx [Macrobid CAP] metroNIDAZOLE 0.75%(NF) [Metrogel 1 applicatio TP BID #1 tube 12/03/16 Unknown Rx 0.75% TOPICAL] Fluconazole [Diflucan] 150 mg PO ONCE #1 tablet 05/07/18 Unknown Rx Hydrocortisone 1% [Hydrocortisone 1 applicatio TP TID #1 tube 05/07/18 Unknown Rx 1% CREAM] metroNIDAZOLE [Metronidazole] 500 mg PO BID 7 Days #14 tablet 05/07/18 Unknown Rx ALBUTEROL Inhaler(NF) [VENTOLIN 2 puff IH Q4HRT #1 inha 03/17/19 Unknown Rx Inhaler(NF)] Amoxicillin/Potassium Clav 1 each PO BID #14 tablet 03/17/19 Unknown Rx [Augmentin 875-125 Tablet] Fluticasone [Flonase] 1 spray NS QDAY #1 bottle 03/17/19 Unknown Rx predniSONE [Deltasone] 20 mg PO QDAY #5 tab 03/17/19 Unknown Rx traMADoL [Ultram] 50 mg PO Q6HR PRN #12 tablet 03/17/19 Unknown Rx metroNIDAZOLE [Flagyl TAB] 500 mg PO Q12HR #14 tab 04/14/19 Unknown Rx Miconazole Nitrate [Miconazole 7] 100 mg VG QHS #7 supp.vag 09/25/19 Unknown Rx metroNIDAZOLE [Flagyl TAB] 500 mg PO Q12HR 7 Days #14 tab 09/25/19 Unknown Rx ED Physical Exam - General Limitations: No Limitations General appearance: alert, in no apparent distress - Respiratory Respiratory exam: Present: normal lung sounds bilaterally. Absent: respiratory distress, wheezes, rales, rhonchi, stridor, chest wall tenderness, accessory muscle use - Cardiovascular Cardiovascular Exam: Present: regular rate, normal rhythm. Absent: systolic murmur, diastolic murmur, rubs, gallop - GI/Abdominal GI/Abdominal exam: Present: soft, normal bowel sounds - External exam: Present: normal external exam Speculum exam: Present: vaginal discharge (malodorous frothy yellowish green ). Absent: cervical discharge, vaginal bleeding, foreign body, tissue, laceration Bi-manual exam: Present: normal bi-manual exam, uterine enlargement. Absent: cervical motion tendernes - Back Exam Back exam: Absent: CVA tenderness (R), CVA tenderness (L) - Neurological Exam Neurological exam: Present: alert, oriented X3, normal gait - Psychiatric Psychiatric exam: Present: normal affect, normal mood - Skin Skin exam: Present: warm, dry, intact, normal color. Absent: rash ED Course Vital Signs 09/25/19 08:55 Temperature 98.5 F Pulse Rate 78 Respiratory 18 Rate Blood Pressure 105/44 O2 Sat by Pulse 100 Oximetry ED Medical Decision Making - Lab Data Lab Results 09/25/19 Range/Units 11:46 Urine Color Yellow (Yellow) Urine Turbidity Clear (Clear) Urine pH 8.0 H (5.0-7.0) Ur Specific [place] 1.015 (1.003-1.030) Urine Protein <15 mg/dl (Negative) mg/dL Urine Glucose (UA) Neg (Negative) mg/dL Urine Ketones Neg (Negative) mg/dL Urine Blood Neg (Negative) Urine Nitrite Neg (Negative) Urine Bilirubin Neg (Negative) Urine Urobilinogen 2.0 (<2.0) mg/dL Ur Leukocyte Esterase Sm (Negative) Urine WBC (Auto) 1.0 (0.0-6.0) /HPF Urine RBC (Auto) 1.0 (0.0-6.0) /HPF U Epithel Cells (Auto) 1.0 (0-13.0) /HPF Urine Mucus Few /HPF - Medical Decision Making Patient was examined by me. Patient is nontoxic appearing and stable. Vitals are normal. Pelvic exam was performed. Obtained urinalysis, wet prep, and gonorrhea and chlamydia. Urinalysis unremarkable. Wet prep positive for clue cells and yeast, negative trichomoniasis. Gonorrhea and chlamydia is pending. There is mild congestion on focal exam with normal vital signs which suggest upper respiratory infection. Acute cervicitis and bacterial vaginitis. Empirically treated with Rocephin and azithromycin. Start metronidazole and miconazole. Patient informed of results. Instructed to follow-up with her [facility] and [facility] or return to the ER with worsening symptoms. Patient discharged home in stable condition. Critical care attestation.: If time is entered above; I have spent that time in minutes in the direct care of this critically ill patient, excluding procedure time. ED Disposition Clinical Impression: Acute cervicitis, Bacterial vaginitis, Candidiasis of vagina Vaginal discharge during Qualifiers: Trimester: second trimester Qualified Code(s): O26.892 - Other specified related conditions, second trimester Upper respiratory infection Qualifiers: URI type: acute nasopharyngitis (common cold) Qualified Code(s): J00 - Acute nasopharyngitis [common cold] Disposition: TO HOME OR SELFCARE Is pt being admited?: No Condition: Stable Instructions: Bacterial Vaginosis (ED), Cervicitis (ED), Upper Respiratory Infection (ED), Cold Symptoms (ED) Additional Instructions: Increase fluid intake and rest. Wash hands frequently. Continue safe sexual intercourse. Return to ER if fever, SOB, or difficulty breathing after 48 hours of supportive care. Prescriptions: Miconazole Nitrate [Miconazole 7] 100 mg VG QHS #7 supp.vag metroNIDAZOLE [Flagyl TAB] 500 mg PO Q12HR 7 Days #14 tab Referrals: [facility] [Provider Group] - 3-5 Days [facility] [Outside] - 3-5 Days Forms: STI Treatment and Prevention Time of Disposition: 11:28
[2019-09-25] MEDS ORDERED: LIDOCAINE-MPF (1%) 10 MG/1 ML VIAL 5 ML INFILTRATI ONE (11:44)
[2019-09-25] MEDS ORDERED: AZITHROMYCIN 250 MG TAB PO ONE (11:44)
[2019-09-25 12:11] LABS: Bilirubin,Urine NEG (Negative); Blood,Urine NEG (Negative); Color,Urine Yellow (Yellow); Mucus,Urine FEW /HPF; Protein,Urine <15 mg/dL mg/dL (Negative)
== END 2019-09-25 12:26 | disposition home or self-care (01) ==
LOC: ED 08:44
DX: O99.512 Diseases of the respiratory system complicating pregnancy, second trimester (principal); O23.512 Infections of cervix in pregnancy, second trimester; O23.592 Infection of other part of genital tract in pregnancy, second trimester; B96.89 Other specified bacterial agents as the cause of diseases classified elsewhere; J45.909 Unspecified asthma, uncomplicated; J06.9 Acute upper respiratory infection, unspecified; Z3A.25 25 weeks gestation of pregnancy
CPT/HCPCS: 81001; 87210; 87591; 96372; 99284; J0696

== ENCOUNTER 2019-11-23 06:49 | Outpatient (CLI) | payer SELFPAY ==
[2019-11-23 07:14] VITALS: BP 99/59
[2019-11-23] MEDS ORDERED: LACTATED RINGERS 500 ML IV ONE (08:30)
[2019-11-23] MEDS ORDERED: LACTATED RINGERS 1,000 ML IV SCH (09:00)
[2019-11-23] MEDS ORDERED: TERBUTALINE 1 MG/1 ML INJ SUB-Q ONE (09:30)
[2019-11-23 10:54] LABS: Bilirubin,Urine NEG (Negative); Blood,Urine NEG (Negative); Color,Urine Straw (Yellow); Protein,Urine <15 mg/dL mg/dL (Negative); Urobilinogen,Urine < 2.0 mg/dL (<2.0)
== END 2019-11-23 11:35 | disposition home or self-care (01) ==
LOC: TRG 06:49
PROVIDERS: ATTEND Obstetrics & Gynecology
DX: O62.9 Abnormality of forces of labor, unspecified (principal); O99.513 Diseases of the respiratory system complicating pregnancy, third trimester; J45.909 Unspecified asthma, uncomplicated; Z3A.33 33 weeks gestation of pregnancy
CPT/HCPCS: 59025; 81001; 96360; 96361; 96372; J3105; J7120

== ENCOUNTER 2019-12-11 13:18 | Outpatient (CLI) | payer OTHER ==
[2019-12-11 15:35] VITALS: BP 104/55
[2019-12-11] MEDS ORDERED: LACTATED RINGERS 1,000 ML IV SCH (16:00)
[2019-12-11] MEDS ORDERED: diphenhydrAMINE 25 MG CAP PO ONE (16:31)
[2019-12-11 16:32] LABS: Bilirubin,Urine NEG (Negative); Blood,Urine NEG (Negative); Color,Urine Yellow (Yellow); Mucus,Urine FEW /HPF; Protein,Urine <15 mg/dL mg/dL (Negative)
[2019-12-11 17:08] LABS: Hematocrit 35.1 % (30.3-42.9); Hemoglobin 11.9 gm/dl (10.1-14.3); Mean Corpuscular HGB Conc 34 % (30-34); Mean Corpuscular Volume 89 fl (79-97); Platelet Count 203 K/mm3 (140-440); Red Blood Count 3.95 M/mm3 (3.65-5.03); Red Cell Distribution Width 14.7 % (13.2-15.2)
[2019-12-11 17:24] LABS: Alanine Aminotransferase 6 units/L (7-56); Albumin 3.7 g/dL (3.9-5); BUN/Creatinine Ratio 12; Blood Urea Nitrogen 6 mg/dL (7-17); Calcium 9.5 mg/dL (8.4-10.2); Hemolysis Index 21
[2019-12-11] MEDS ORDERED: diphenhydrAMINE 50 MG/ML VIAL IV PRN (17:39)
== END 2019-12-11 18:48 | disposition home or self-care (01) ==
LOC: TRG 13:18
PROVIDERS: ATTEND Obstetrics & Gynecology
DX: O26.893 Other specified pregnancy related conditions, third trimester (principal); L29.9 Pruritus, unspecified; O47.03 False labor before 37 completed weeks of gestation, third trimester; O99.513 Diseases of the respiratory system complicating pregnancy, third trimester; J45.909 Unspecified asthma, uncomplicated; Z3A.36 36 weeks gestation of pregnancy
CPT/HCPCS: 36415; 59025; 80053; 81001; 82150; 83690; 85027; 96360; 96361; J7120; 96365; J1200

== ENCOUNTER 2020-01-07 00:01 | Inpatient (IN) | payer MEDICAID ==
[2020-01-07] MEDS ORDERED: ePHEDrine SULFATE 50 MG/1 ML INJ IV PRN (01:10)
[2020-01-07] MEDS ORDERED: LIDOCAINE (2%) 20 MG/1 ML VIAL 20 ML MDV INFILTRATI ONE (01:10)
[2020-01-07] MEDS ORDERED: TERBUTALINE 1 MG/1 ML INJ IVP PRN (01:10)
[2020-01-07] MEDS ORDERED: MINERAL OIL 30 ML ORAL LIQD PO PRN (01:10)
[2020-01-07] MEDS ORDERED: BUTORPHANOL 2 MG/1 ML INJ IV PRN ×2 (01:10)
[2020-01-07] MEDS ORDERED: AMPICILLIN/NS 2 GM/100 ML 2 GM/100 ML BAG IV ONE (01:10)
[2020-01-07] MEDS ORDERED: TERBUTALINE 1 MG/1 ML INJ SUB-Q PRN (01:10)
[2020-01-07] MEDS ORDERED: fentaNYL 100 MCG/2 ML INJ IV PRN (01:10)
[2020-01-07 01:55] LABS: Hemoglobin 11.4 gm/dl (10.1-14.3); Mean Corpuscular HGB Conc 33 % (30-34); Mean Corpuscular Volume 87 fl (79-97); Platelet Count 224 K/mm3 (140-440); Red Blood Count 3.89 M/mm3 (3.65-5.03)
[2020-01-07] MEDS ORDERED: OXYTOCIN 20 UNIT/1000ML DRIP 20 UNITS/1,000 ML BAG IV SCH (02:00)
[2020-01-07] MEDS ORDERED: LACTATED RINGERS 1,000 ML IV SCH (02:00)
[2020-01-07] MEDS ORDERED: diphenhydrAMINE 25 MG CAP PO PRN (04:50)
[2020-01-07] MEDS ORDERED: ACETAMINOPHEN 325 MG TAB PO PRN (04:50)
[2020-01-07] MEDS ORDERED: ONDANSETRON 4 MG/2 ML INJ IV PRN (04:50)
[2020-01-07] MEDS ORDERED: KETOROLAC 30 MG/1 ML INJ IV PRN (04:50)
[2020-01-07] MEDS ORDERED: LANOLIN/ZINC/DIMETHICONE (LANSINOH) 7 GM TP PRN (04:50)
[2020-01-07] MEDS ORDERED: HYDROcodone/ACETAMINOPHEN 5-325 MG TAB PO PRN (04:50)
[2020-01-07] MEDS ORDERED: WITCH HAZEL/ GLYCERIN PAD TP PRN (04:50)
[2020-01-07] MEDS ORDERED: PROMETHAZINE 25 MG RECT SUPP PR PRN (04:50)
[2020-01-07] MEDS ORDERED: PROMETHAZINE 25 MG TAB PO PRN (04:50)
[2020-01-07] MEDS ORDERED: MAGNESIUM HYDROXIDE (MOM) ORAL LIQD UDC PO PRN (04:50)
--- NOTE | 2020-01-07 04:57 | History and Physical Report ---
History of Present Illness Date of examination: 01/07/20 Date of admission: 01/07/20 00:21 Chief complaint: contractions History of present illness: This is a 24 yo at 40+0 weeks here for contractions. She was noted to be 3cm and magdiel. She has a hx of asthma and GBS in urine treated. 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 Past History Past Medical History: asthma [employer] History: abnormal PAP smear, chlamydia Family/Genetic History: hypertension, other (arthreits) Social history: single. denies: smoking, alcohol abuse, prescription drug abuse - Obstetrical History Expected Date of Delivery: 01/07/20 Actual Gestation: 40 Week(s) 0 Day(s) : 3 Para: 2 Hx # Term Pregnancies: 2 Number of Pregnancies: 0 Spontaneous Abortions: 0 Induced : 0 Number of Living Children: 2 Medications and Allergies Allergies Allergy/AdvReac Type Severity Reaction Status Date / Time No Known Allergies Allergy Verified 04/14/19 12:49 Home Medications Medication Instructions Recorded Confirmed Last Taken Type No Known Home Medications [No 11/23/19 11/23/19 Unknown History Reported Home Medications] Active Meds: Active Medications Acetaminophen (Tylenol) 650 mg PO Q4H PRN PRN Reason: Pain MILD(1-3)/Fever >100.5/MARION Acetaminophen/Hydrocodone Bitart ([place] 5/325) 2 each PO Q6H PRN PRN Reason: Pain, Moderate (4-6) Bisacodyl (Dulcolax) 10 mg ID BID PRN PRN Reason: Constipation Butorphanol Tartrate (Stadol) 2 mg IV Q2H PRN PRN Reason: Pain , Severe (7-10) Butorphanol Tartrate (Stadol) 1 mg IV Q2H PRN PRN Reason: Labor Pain Diphenhydramine HCl (Benadryl) 25 mg PO Q6H PRN PRN Reason: Itching Diphtheria/Tetanus/Acell Pertussis (Boostrix) 0.5 ml IM .ONCE ONE Stop: 01/08/20 04:51 Docusate Sodium (Colace) 100 mg PO BID ASHTYN Ephedrine Sulfate (Ephedrine Sulfate) 10 mg IV Q2M PRN PRN Reason: Hypotension Fentanyl (Sublimaze) 100 mcg IV Q2H PRN PRN Reason: Labor Pain Last Admin: 01/07/20 03:00 Dose: 100 mcg Documented by: Oxytocin/Sodium Chloride (Pitocin/Ns 20 Unit/1000ml Drip) 20 units in 1,000 mls @ 125 mls/hr IV DIRECT ASHTYN Lactated Ringer's (Lactated Ringers) 1,000 mls @ 125 mls/hr IV DIRECT ASHTYN Last Admin: 01/07/20 02:15 Dose: 125 mls/hr Documented by: Ampicillin Sodium (Ampicillin/Ns 1 Gm/50 Ml) 1 gm in 50 mls @ 100 mls/hr IV Q4HR ASHTYN; Protocol Ibuprofen (Ibuprofen) 600 mg PO Q6H ASHTYN Ketorolac Tromethamine (Toradol) 30 mg IV Q6H PRN PRN Reason: Pain, Moderate (4-6) Stop: 01/12/20 04:49 Magnesium Hydroxide (Milk Of Magnesia) 30 ml PO HS PRN PRN Reason: Constipation Measles/Mumps/Rubella Vaccine Live (M-M-R Ii Vaccine) 0.5 ml SUB-Q .ONCE ONE Stop: 01/08/20 04:51 Mineral Oil (Mineral Oil) 30 ml PO QHS PRN PRN Reason: Constipation Multi-Ingredient Ointment (Lansinoh) 1 applic TP PRN PRN PRN Reason: Sore Nipples Multivitamins/Iron/Calcium ( Vitamin) 1 each PO QDAY [facility] Ondansetron HCl (Zofran) 4 mg IV Q8H PRN PRN Reason: Nausea And Vomiting Oxycodone/Acetaminophen (Percocet 5/325) 1 tab PO Q6H PRN PRN Reason: Pain, Moderate (4-6) Promethazine HCl (Phenergan) 25 mg ID Q6H PRN PRN Reason: Nausea And Vomiting Promethazine HCl (Phenergan) 25 mg PO Q6H PRN PRN Reason: Nausea And Vomiting Senna/Docusate Sodium (Senokot S) 2 tab PO Q12H [facility] Sodium Chloride (Sodium Chloride Flush Syringe 10 Ml) 10 ml IV PRN NR Terbutaline Sulfate (Brethine) 0.25 mg SUB-Q ONCE PRN PRN Reason: Hyperstimulation/Hypertonicity Terbutaline Sulfate (Brethine) 0.25 mg IVP ONCE PRN PRN Reason: Hyperstimulation/Hypertonicity [place]/Glycerin (Tucks Pad) 1 each TP PRN PRN PRN Reason: Hemorrhoid/cleansing/soothing Review of Systems All systems: negative - Vital Signs Vital signs: Vital Signs Pulse BP 74 109/62 01/07/20 00:16 01/07/20 00:16 Temp Pulse Resp BP Pulse Ox 74 109/62 01/07/20 00:16 01/07/20 00:16 - Physical Exam Breasts: Positive: normal Cardiovascular: Regular rate, Normal S1 Lungs: Positive: Clear to auscultation, Normal air movement Abdomen: Positive: normal appearance, soft, normal bowel sounds. Negative: distention, tenderness, guarding Genitourinary (Female): Positive: normal external genitalia, normal perenium Vagina: Positive: normal moisture Uterus: Positive: normal size Anus/Rectum: Positive: normal perianal skin Extremities: Positive: normal Deep Tendon Reflex Grade: Normal +2 - Obstetrical FHR: category 1 Cervical Dilatation: 3 Cervical Effacement Percentage: 70 station: -2 Results Result Diagrams: 01/07/20 01:35 All other labs normal. Assessment and Plan A/P IUP 40+0 weeks hx of hsv no outbreaks asthma GBS + Admit to l and d IVF, abx for GBS + expect vaginal delivery
--- NOTE | 2020-01-07 05:03 | Procedure Note ---
OB Delivery Note - Delivery Date of Delivery: 01/07/20 Surgeon: ISRAEL DAVALOS Estimated blood loss: 300cc - Vaginal Delivery presentation: vertex Delivery position: OA Delivery induction: none Delivery augmentation: rupture of membranes Delivery monitor: external FHT, external uterine Route of delivery: Delivery placenta: spontaneous Delivery cord: nuchal cord, 3 umbilical vessels Episiotomy: none Delivery laceration: none Anesthesia: intravenous Delivery comments: Patient was noted to be complete and +2 and commenced to pushing after a AROM of clear fluid. Baby delivered cephalic in a CHRIS position. A nuchal cord loose reduced without complications and the shoulders delivered easily at 0441. The cord was clamped and cut and handed to awaiting Beatriz team. The placenta delviered intact at 0445 with three vessel cord. Survey of perineum without lacerations. EBL 300 cc. Patient tolerated procedure well and bonding with baby. All laps and needles counted and correct. - A at 1 minute: 8 at 5 minutes: 9 Infant Gender: Female (6 pounds 12 oz)
[2020-01-07] MEDS ORDERED: AMPICILLIN/NS 1 GM/50 ML 1 GM/50 ML BAG IV SCH (05:12)
[2020-01-07] MEDS: PRENATAL VIT27-FE FUMARATE-FOLIC ACID VIT TAB PO SCH (09:26)
[2020-01-07] MEDS: IBUPROFEN 600 MG TAB PO SCH ×3 (09:26→22:27)
[2020-01-07] MEDS: DOCUSATE SODIUM 100 MG CAP PO SCH ×2 (09:26→22:27)
[2020-01-07 16:36] LABS: Hematocrit 29.7 % (30.3-42.9); Hemoglobin 9.9 gm/dl (10.1-14.3)
[2020-01-07] MEDS: oxyCODONE /ACETAMINOPHEN 5-325MG TAB PO PRN (18:47)
[2020-01-08] MEDS: IBUPROFEN 600 MG TAB PO SCH ×4 (05:16→22:25)
[2020-01-08] MEDS: SENNOSIDES/DOCUSATE SODIUM 8.6/50 MG TAB PO SCH ×2 (05:16→18:12)
[2020-01-08] MEDS ORDERED: MEASLES, MUMPS & RUBELLA 12,500 UNIT/0.5 ML VACCINE SUB-Q ONE (06:00)
[2020-01-08] MEDS ORDERED: TETANUS,DIPH,PERTUSS(ACELL) VACCINE 0.5 ML SYRINGE IM ONE (06:00)
--- NOTE | 2020-01-08 07:51 | Progress Note ---
Assessment and Plan A/P PPD1 routine pp care acute anemia iron added Subjective - Subjective Date of service: 01/08/20 Principal diagnosis: s/p Interval history: This is a 24 yo at 40+0 weeks here for contractions. She was noted to be 3cm and magdiel. She has a hx of asthma and GBS in urine treated. 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 Patient reports: appetite normal, pain well controlled, flatus, ambulating normally [place]: doing well Objective - Vital Signs Latest vital signs: Vital Signs Temp Pulse Resp BP Pulse Ox 01/08/20 00:04 98.2 F 58 L 20 103/61 98 01/07/20 16:19 98.7 F 67 20 96/58 96 01/07/20 13:49 98.1 F 69 19 111/66 99 01/07/20 07:53 98.2 F 63 20 110/69 94 Intake and Output 01/07/20 01/07/20 01/08/20 15:59 23:59 07:59 Intake Total 960 120 480 Output Total 200 Balance 960 -80 480 Intake: Oral 960 120 480 Output: Urine 200 Void 200 Other: Total, Intake Amount 480 120 240 Total, Output Amount 200 # Voids Void 2 1 # Bowel Movements 0 - Exam Breasts: Present: normal Cardiovascular: Present: Regular rate, Normal S1 Lungs: Present: Clear to auscultation, Normal air movement Abdomen: Present: normal appearance, soft, normal bowel sounds. Absent: distention, tenderness, guarding Uterus: Present: normal, firm, fundal height at umbilicus. Absent: bogginess, tenderness Extremities: Present: normal Deep Tendon Reflex Grade: Normal +2 - Labs Labs: Abnormal lab results 01/07/20 Range/Units 16:25 Hgb 9.9 L (10.1-14.3) gm/dl Hct 29.7 L (30.3-42.9) %
[2020-01-08] MEDS: DOCUSATE SODIUM 100 MG CAP PO SCH ×2 (09:33→22:24)
[2020-01-08] MEDS: PRENATAL VIT27-FE FUMARATE-FOLIC ACID VIT TAB PO SCH (09:33)
--- NOTE | 2020-01-09 06:55 | Progress Note ---
Assessment and Plan PPD 2 s/p . Doing well. Plan for discharge on today. Subjective - Subjective Date of service: 01/09/20 Principal diagnosis: s/p Patient reports: appetite normal, voiding normally, pain well controlled, ambulating normally [place]: doing well Objective - Vital Signs Latest vital signs: Vital Signs Temp Pulse Resp BP BP Pulse Ox 01/09/20 00:29 98.4 F 64 18 91/59 98 01/08/20 22:25 18 01/08/20 15:49 97.8 F 73 18 102/63 99 01/08/20 09:46 98.2 F 79 20 85/49 91 01/08/20 08:48 98.2 F 71 20 77/43 99 Intake and Output 01/08/20 01/08/20 01/09/20 14:59 22:59 06:59 Intake Total 2800 720 Balance 2800 720 Intake: Oral 2320 Intake, Free Water 480 720 Other: Total, Intake Amount 240 # Voids Void 2 1 # Bowel Movements 0 - Exam Breasts: Present: deferred Cardiovascular: Present: Regular rate, Normal S1, Normal S2 Lungs: Present: Clear to auscultation, Normal air movement Abdomen: Present: normal appearance, soft Extremities: Present: normal
--- NOTE | 2020-01-09 06:56 | Discharge Summary ---
Providers - Providers Date of Admission: 01/07/20 00:21 Date of discharge: 01/09/20 Attending physician: ISRAEL DAVALOS MD Primary care physician: ISRAEL DAVALOS MD Hospitalization Reason for admission: active labor Delivery: complications: none Discharge diagnosis: IUP at term delivered baby: female Hospital course: unremarkable Condition at discharge: Good Disposition: DC-01 TO HOME OR SELFCARE Plan - Discharge Medications Prescriptions: Ibuprofen [Motrin] 600 mg PO Q8H PRN #30 tablet PRN Reason: Pain oxyCODONE /ACETAMINOPHEN [Percocet 5/325] 1 tab PO Q6HR PRN #20 tablet PRN Reason: Pain - Provider Discharge Summary Activity: routine, no sex for 6 weeks, no heavy lifting 4 weeks, no strenuous exercise Diet: routine Instructions: routine Additional instructions: [] Smoking cessation referral if applicable(refer to patient education folder for contact #) [] Refer to [facility] Booklet Call your doctor immediately for: * Fever > 100.5 * Heavy vaginal bleeding ( >1 pad per hour) * Severe persistent headache * Shortness of breath * Reddened, hot, painful area to leg or breast * Drainage or odor from incision. * Keep incision clean and dry at all times and follow doctor's instructions regarding bathing/showering - Follow up plan Follow up: ISRAEL DAVALOS MD [Primary Care Provider] - 6 Weeks
[2020-01-09] MEDS: IBUPROFEN 600 MG TAB PO SCH (09:04)
[2020-01-09] MEDS: PRENATAL VIT27-FE FUMARATE-FOLIC ACID VIT TAB PO SCH (09:05)
[2020-01-09] MEDS: DOCUSATE SODIUM 100 MG CAP PO SCH (09:05)
[2020-01-09] MEDS: oxyCODONE /ACETAMINOPHEN 5-325MG TAB PO PRN (09:06)
[2020-01-09 14:59] VITALS: BP 121/75
== END 2020-01-09 13:38 | disposition home or self-care (01) | DRG 775 ==
LOC: TRG 00:01 → OBSVTOIN 00:21 → LD 00:21 → OB 06:19
PROVIDERS: ADMIT Obstetrics & Gynecology; ATTEND Obstetrics & Gynecology
PROC: 10E0XZZ Delivery of Products of Conception, External Approach (ICD-10-PCS; principal; 2020-01-07)
PROC: 3E0234Z Introduction of Serum, Toxoid and Vaccine into Muscle, Percutaneous Approach (ICD-10-PCS; 2020-01-08)
PROC: 3E0134Z Introduction of Serum, Toxoid and Vaccine into Subcutaneous Tissue, Percutaneous Approach (ICD-10-PCS; 2020-01-08)
DX: O69.81X0 Labor and delivery complicated by cord around neck, without compression, not applicable or unspecified (principal); O99.52 Diseases of the respiratory system complicating childbirth; O99.824 Streptococcus B carrier state complicating childbirth; D64.9 Anemia, unspecified; J45.909 Unspecified asthma, uncomplicated; O99.03 Anemia complicating the puerperium; Z3A.40 40 weeks gestation of pregnancy; Z37.0 Single live birth; Z23 Encounter for immunization; Z82.49 Family history of ischemic heart disease and other diseases of the circulatory system; Z82.61 Family history of arthritis
CPT/HCPCS: 36415; 85014; 85018; 85027; 86850; 86900; 86901; G0378; J0290; J2590; J3010; J7120

== ENCOUNTER 2021-12-31 17:56 | Emergency (ER) | payer MEDICAID ==
[2021-12-31 18:38] VITALS: BP 110/60
--- NOTE | 2021-12-31 19:30 | Emergency Department Report ---
ED General Adult HPI - General Chief complaint: Skin/Abscess/Foreign Body Stated complaint: TAMPON STUCK Time Seen by Provider: 12/31/21 19:06 Source: patient Mode of arrival: Ambulatory Limitations: No Limitations - History of Present Illness Initial comments: Patient is 26 years old female with no significant past medical history. Patient presented to the ER stating that she had a tampon stuck into her vagina since last night. Patient stated that she is currently on her cycle. Patient denied any fever or chills. Severity scale (0 -10): 10 - Related Data Previous Rx's Medication Instructions Recorded Last Taken Type Ibuprofen [Motrin] 600 mg PO Q8H PRN #30 tablet 01/07/20 Unknown Rx oxyCODONE /ACETAMINOPHEN [Percocet 1 tab PO Q6HR PRN #20 tablet 01/07/20 Unknown Rx 5/325] Allergies Allergy/AdvReac Type Severity Reaction Status Date / Time No Known Allergies Allergy Verified 12/31/21 18:38 ED Review of Systems ROS: Stated complaint: TAMPON STUCK Other details as noted in HPI Comment: All other systems reviewed and negative Constitutional: denies: chills, fever Respiratory: denies: cough Gastrointestinal: denies: abdominal pain Genitourinary: denies: discharge ED Past Medical Hx - Past Medical History Hx Hypertension: No Hx Heart Attack/AMI: No Hx Congestive Heart Failure: No Hx Diabetes: No Hx Deep Vein Thrombosis: No Hx Renal Disease: No Hx Sickle Cell Disease: No Hx Seizures: No Hx Asthma: Yes Hx COPD: No Hx HIV: No Additional medical history: Eczema - Social History Smoking Status: Never Smoker - Medications Home Medications: Home Medications Medication Instructions Recorded Confirmed Last Taken Type Ibuprofen [Motrin] 600 mg PO Q8H PRN #30 tablet 01/07/20 Unknown Rx oxyCODONE /ACETAMINOPHEN [Percocet 1 tab PO Q6HR PRN #20 tablet 01/07/20 Unknown Rx 5/325] ED Physical Exam - General Limitations: No Limitations General appearance: alert, in no apparent distress - ENT ENT exam: Present: mucous membranes moist - Respiratory Respiratory exam: Present: normal lung sounds bilaterally - Cardiovascular Cardiovascular Exam: Present: regular rate, normal rhythm, normal heart sounds - External exam: Present: normal external exam Speculum exam: Present: normal speculum exam. Absent: erythema, vaginal discharge, cervical discharge, vaginal bleeding, foreign body, tissue, laceration Bi-manual exam: Present: normal bi-manual exam. Absent: cervical motion tendernes, adnexal tenderness, adnexal mass, uterine enlargement, uterine tenderness - Neurological Exam Neurological exam: Present: alert, oriented X3 ED Course Vital Signs 12/31/21 18:36 Temperature 99 F Pulse Rate 82 Respiratory 20 Rate Blood Pressure 110/60 [Left] O2 Sat by Pulse 97 Oximetry ED Medical Decision Making - Medical Decision Making Patient is 26 years old female with no significant past medical history. Patient presented to the ER stating that she had a tampon stuck into her vagina since last night. Patient stated that she is currently on her cycle. Patient denied any fever or chills. I did pelvic speculum exam and I did not appreciate any foreign body in the vagina. Patient is most likely confusing her cervix feeling as foreign body. No vaginal discharge appreciated no tenderness no motion tenderness. Patient advised to follow-up with her gynecology as needed and to return to the ER if she develop any new symptoms especially fever or chills. Critical care attestation.: If time is entered above; I have spent that time in minutes in the direct care of this critically ill patient, excluding procedure time. ED Disposition Clinical Impression: Foreign body in vagina Disposition: 01 HOME / SELF CARE / HOMELESS Is pt being admited?: No Condition: Stable Instructions: Vaginal Foreign Body, [id number] Referrals: PRIMARY CARE, [Primary Care Provider] - 3-5 Days
== END 2021-12-31 20:42 | disposition home or self-care (01) ==
LOC: ED 17:56
DX: T19.2XXA Foreign body in vulva and vagina, initial encounter (principal); X58.XXXA Exposure to other specified factors, initial encounter; Y93.89 Activity, other specified; Y92.89 Other specified places as the place of occurrence of the external cause; Y99.8 Other external cause status
CPT/HCPCS: 99283